=== PATIENT | female | born 1990 | race Caucasian/White ===

== ENCOUNTER 2018-01-26 01:23 | Emergency (ER) | payer SELFPAY ==
[2018-01-26 01:42] VITALS: BP 135/82; PULSE 95; RESP 19; TEMP 99.2; O2SAT 100
--- NOTE | 2018-01-26 02:09 | ED PDOC ---
HPI: Influenza Time Seen by Provider: 01/26/18 01:40 Chief Complaint: Flu-like Symptoms Chief Complaint (Provider): Flu-like Symptoms History Per: Patient Exam Limitations: no limitations Onset/Duration Of Symptoms: Days (x4) Symptoms include: fever, bodyaches, cough, nasal congestion Sick Contacts (Context): None Additional complaint(s):: 27 year old female presents to the emergency department with a complaint of flu- like symptoms including cough, congestion, bodyaches and fever (tmax: 99.8) ongoing for 4 days. Patient denies any recent sick contacts, travel or further medical complaints. PMD: none provided Past Medical History Reviewed: Historical Data, Nursing Documentation, Vital Signs Vital Signs: Last Vital Signs Temp 99.2 F 01/26/18 01:40 Pulse 95 H 01/26/18 01:40 Resp 19 01/26/18 01:40 BP 135/82 01/26/18 01:40 Pulse Ox 100 01/26/18 01:40 - Medical History PMH: No Chronic Diseases - Surgical History Surgical History: No Surg Hx - Family History Family History: States: Unknown Family Hx - Social History Current smoker - smoking cessation education provided: No Alcohol: None Drugs: Denies - Home Medications Home Medications: Ambulatory Orders Medication Instructions Recorded Diphenhydra/Phenyleph/Acetamin 1 each PO QPM #5 tablet 01/26/18 [Theraflu Expressmax Night Cplt] Ibuprofen [Motrin Tab] 600 mg PO Q6 #30 tab 01/26/18 Prednisone [Deltasone] 20 mg PO DAILY #3 tablet 01/26/18 - Allergies Allergies/Adverse Reactions: Allergies Allergy/AdvReac Type Severity Reaction Status Date / Time No Known Allergies Allergy Verified 01/26/18 01:42 Review of Systems ROS Statement: Except As Marked, All Systems Reviewed And Found Negative Constitutional: Positive for: Fever (tmax 99.8 degrees), Other (bodyaches) ENT: Positive for: Nose Congestion Respiratory: Positive for: Cough Physical Exam - Reviewed Nursing Documentation Reviewed: Yes Vital Signs Reviewed: Yes - Physical Exam Appears: Positive for: Well, Non-toxic, No Acute Distress Head Exam: Positive for: ATRAUMATIC, NORMAL INSPECTION, NORMOCEPHALIC Skin: Positive for: Normal Color Eye Exam: Positive for: Normal appearance ENT: Positive for: Normal ENT Inspection, TM Is/Are (clear bilaterally). Negative for: Pharyngeal Erythema, Tonsillar Exudate Neck: Positive for: Normal, Supple Cardiovascular/Chest: Positive for: Regular Rate, Rhythm Respiratory: Positive for: Normal Breath Sounds. Negative for: Wheezing, Respiratory Distress Extremity: Positive for: Normal ROM (upper/lower) Neurologic/Psych: Positive for: Alert, Oriented Medical Decision Making Medical Decision Making: Initial Impression: A/P: No significant PMHx presenting influenza-like symptoms for 4 days. Patient is well appearing with normal exam and vitals. --Discussed with patient about the ineffectiveness of Tamiflu due to 48 hours past initial onset. --Motrin 600mg PO and Prednisone 20mg PO ordered for symptomatic treatment. Time: 0159 --Upon provider evaluation, patient is medically stable and requires no further treatment in the ED at this time. Patient will be discharged home with Rx for Theraflu, Motrin 600mg and Deltasone 20mg. Counseling was provided and all questions were answered regarding diagnosis. There is agreement to discharge plan. Return if symptoms persist or worsen. Clinical Impression: Influenza-like symptoms Scribe Attestation: Documented by Holli Mansfield, acting as a scribe for Anil Menon MD. Provider Scribe Attestation: All medical record entries made by the Scribe were at my direction and personally dictated by me. I have reviewed the chart and agree that the record accurately reflects my personal performance of the history, physical exam, medical decision making, and the department course for this patient. I have also personally directed, reviewed, and agree with the discharge instructions and disposition. - ECG O2 Sat by Pulse Oximetry: 100 (RA) Pulse Ox Interpretation: Normal Disposition - Clinical Impression Clinical Impression: Influenza-like symptoms - Patient ED Disposition Is Patient to be Admitted: No Counseled Patient/Family Regarding: Diagnosis, Need For Followup - Disposition Referrals: Gino Tapia [Outside] Disposition: Routine/Home Disposition Time: :59 Condition: STABLE Prescriptions: Diphenhydra/Phenyleph/Acetamin [Theraflu Expressmax Night Cplt] 1 each PO QPM # 5 tablet Ibuprofen [Motrin Tab] 600 mg PO Q6 #30 tab Prednisone [Deltasone] 20 mg PO DAILY #3 tablet Instructions: Flu Forms: [employer] (Greek)
== END 2018-01-26 03:00 | disposition home or self-care (01) ==
LOC: H.ER 01:23
DX: J11.1 Influenza due to unidentified influenza virus with other respiratory manifestations (principal)

== ENCOUNTER 2018-01-31 04:54 | Emergency (ER) | payer SELFPAY ==
[2018-01-31 05:03] VITALS: TEMP 98.9
[2018-01-31] MEDS ORDERED: Sodium Chloride 0.9% 1,000 ML IV STA (05:18)
--- NOTE | 2018-01-31 05:43 | ED PDOC ---
HPI: Psych/Substance Abuse Time Seen by Provider: 01/31/18 05:00 Chief Complaint (Nursing): Substance Abuse Chief Complaint (Provider): Substance Abuse History Per: Other (Boyfriend) History/Exam Limitations: intoxication Current Symptoms Are (Timing): Still Present Suicide/Self Injury Attempted (Context): None Modifying Factor(s): Alcohol, Other ("Blow") Additional Complaint(s): 27 year old female brought in by boyfriend presents to ED due to substance abuse and has no past medical history. Boyfriend states that they were drinking alcohol and using recreational drugs such as "blow". Boyfriend believes patient has taken other illicit substances as he found her to be confused and less responsive than normal. (-) vomiting, cough, SOB, fever, or head injury. PCP: [facility] Past Medical History Reviewed: Historical Data, Nursing Documentation, Vital Signs Vital Signs: Last Vital Signs Temp 98.9 F 01/31/18 05:00 Pulse 95 H 01/31/18 05:00 Resp 16 01/31/18 05:00 BP 115/81 01/31/18 05:00 Pulse Ox 100 01/31/18 05:00 - Medical History PMH: No Chronic Diseases - Family History Family History: States: Unknown Family Hx - Social History Alcohol: Occasional - Home Medications Home Medications: Ambulatory Orders Medication Instructions Recorded Diphenhydra/Phenyleph/Acetamin 1 each PO QPM #5 tablet 01/26/18 [Theraflu Expressmax Night Cplt] Ibuprofen [Motrin Tab] 600 mg PO Q6 #30 tab 01/26/18 Prednisone [Deltasone] 20 mg PO DAILY #3 tablet 01/26/18 - Allergies Allergies/Adverse Reactions: Allergies Allergy/AdvReac Type Severity Reaction Status Date / Time No Known Allergies Allergy Verified 01/26/18 01:42 Review of Systems ROS Statement: Except As Marked, All Systems Reviewed And Found Negative (as per anastasiaiend) Constitutional: Negative for: Fever Respiratory: Negative for: Cough, Shortness of Breath Gastrointestinal: Negative for: Vomiting Neurological: Positive for: Altered Mental Status Physical Exam - Reviewed Nursing Documentation Reviewed: Yes Vital Signs Reviewed: Yes - Physical Exam Appears: Positive for: Non-toxic, No Acute Distress Skin: Positive for: Normal Color, Warm, Dry Eye Exam: Positive for: EOMI, PERRL. Negative for: Normal appearance (pupils 3mm bilaterally) Neck: Positive for: Normal, Painless ROM, Supple Cardiovascular/Chest: Positive for: Regular Rate, Rhythm. Negative for: Bradycardia Respiratory: Positive for: Normal Breath Sounds. Negative for: Respiratory Distress Gastrointestinal/Abdominal: Positive for: Normal Exam, Soft. Negative for: Tenderness Extremity: Positive for: Normal ROM. Negative for: Deformity Neurologic/Psych: Positive for: Alert (slow to respond), Oriented (follows commands). Negative for: Motor/Sensory Deficits - Laboratory Results Result Diagrams: 01/31/18 05:47 01/31/18 05:47 - ECG O2 Sat by Pulse Oximetry: 100 (RA) Pulse Ox Interpretation: Normal Medical Decision Making Medical Decision Makin Initial impression: substance/EtOH abuse Initial plan: * EtOH serum * Labs * UDrug screen * PTT/PT * NS IV * Accucheck 0622 Labs reviewed: patient is cocaine positive Patient is clinically sober. Patient requests to go home. Patient is stable for discharge in care of boyfriend. Dx: cocaine abuse ~ Scribe Attestation: Documented by Kaylyn Akbar, acting as a scribe for Parag Parmar MD. Provider Scribe Attestation: All medical record entries made by the Scribe were at my direction and personally dictated by me. I have reviewed the chart and agree that the record accurately reflects my personal performance of the history, physical exam, medical decision making, and the department course for this patient. I have also personally directed, reviewed, and agree with the discharge instructions and disposition. Disposition - Clinical Impression Clinical Impression: Cocaine abuse - Patient ED Disposition Is Patient to be Admitted: No - Disposition Disposition: Routine/Home Disposition Time: 06:20 Condition: STABLE Instructions: Cocaine Use Disorder Forms: [employer] (Divehi)
[2018-01-31 05:51] LABS: BASO % 0.3 % (0.0-2.0); EOS % 0.3 % (0.0-4.0); HEMOGLOBIN 13.5 g/dL (12.0-16.0); LYMPH # 2.5 K/uL (1.0-4.3); MEAN CELL VOLUME 85.5 fl (81.0-99.0); MEAN CORPUSCULAR HEMOGLOBIN 29.4 pg (27.0-31.0); MEAN CORPUSCULAR HGB CONC 34.4 g/dL (33.0-37.0); MEAN PLATELET VOLUME 6.4 fl (7.2-11.7); MONO # 0.8 K/uL (0.0-0.8); MONO % 10.6 % (0.0-10.0); NEUT # 4.2 K/uL (1.8-7.0); NEUT % 55.8 % (50.0-75.0); NRBC % 0.1 % (0.0-0.0); RBC 4.58 Mil/uL (3.80-5.20); RED CELL DISTRIBUTION WIDTH 12.7 % (11.5-14.5); WHITE BLOOD COUNT 7.5 K/uL (4.8-10.8)
[2018-01-31 06:00] LABS: ALB/GLOB RATIO 1.1 (1.0-2.1); ALT/SGPT 46 U/L (9-52); AST/SGOT 26 U/L (14-36); BLOOD UREA NITROGEN 13 mg/dl (7-17); CALCIUM 9.4 mg/dL (8.4-10.2); GFR AFRICAN-AMERICAN > 60; GFR NON-AFRICAN AMERICAN > 60
[2018-01-31 06:06] LABS: BARBITURATES, UR NEGATIVE (NEGATIVE)
[2018-01-31 06:07] LABS: BENZODIAZEPINES, UR NEGATIVE (NEGATIVE); OPIATES, UR NEGATIVE (NEGATIVE); PHENCYCLIDINE, UR NEGATIVE (NEGATIVE)
[2018-01-31 06:14] LABS: INR 0.9 (0.9-1.2); PARTIAL THROMBOPLASTIN TIME 28.7 Seconds (25.6-37.1); PROTHROMBIN TIME 10.1 Seconds (9.8-13.1)
[2018-01-31 06:50] VITALS: BP 111/63; PULSE 70; RESP 18; O2SAT 99
== END 2018-01-31 06:53 | disposition home or self-care (01) ==
LOC: H.ER 04:54
DX: F14.10 Cocaine abuse, uncomplicated (principal); F10.10 Alcohol abuse, uncomplicated
CPT/HCPCS: 80053; 81025; 82948; 85025; 85610; 85730; 96360; 99284; G0480; J7040